=== PATIENT | male | born 1960 | race Caucasian/White ===

== ENCOUNTER 2018-12-03 19:55 | Emergency (ER) | payer BC ==
[2018-12-03 20:40] LABS: PLATELET COUNT 256 10^3/uL (150-400)
[2018-12-03] MEDS ORDERED: LORazepam 2 MG/ML INJ IVP ONE (23:30)
[2018-12-03] MEDS ORDERED: LORazepam 1 MG TAB ONE (23:31)
[2018-12-03] MEDS ORDERED: LORazepam 1 MG TAB PO ONE (23:34)
--- NOTE | 2018-12-04 00:06 | EDPHY ---
General - History Smoking Status: Never smoked Time Seen by Provider: 12/03/18 20:08 Narrative: CLINICAL IMPRESSION: Regan, paranoia ASSESSMENT/PLAN: 57-year-old male originally from [facility] to [place] as of May 2018, brought to the emergency department by a friend this evening for concerns of regan, paranoid behavior, delusions, nonsensical statements, and grave disability. Patient is renting house alone however has been unable to leave the house over the last week, unable to purchase food for himself, and sending group text messages at all hours of the night. Patient admits to a history of manic depression but is not regularly medicated for this. He reports taking Topamax for this. He also states he has had Klonopin in the past. According to his friend, patient has been admitted for his symptoms in the past however his friend has only been a part of his life for the last 2-3 years and met him on a video game on line site. Please see HPI for full details. Patient drinks regularly, is intoxicated with an alcohol level of 200, and also found to have cocaine and marijuana in his urine tox. Remainder of lab work is normal. Patient was placed on a medical incapacitation hold by myself. He will require formal TLC evaluation in the morning pending sobriety. He received Ativan for mild anxiety and is sleeping comfortably. His friend Neto, can be reached at [phone]. Patient's mother and children live in the [place] area, I do not have contact information for them. Case signed out to Dr. Gill at 2:00 a.m. Pending TLC evaluation. I suspect this patient will meet inpatient hospitalization requirements. DIFFERENTIAL DX: Differential includes but not limited to, acute/chronic psychosis, severe depression, suicidal or homicidal ideations, grave disability, failure to thrive , medication noncompliance, medication side effect, alcohol intoxication and illicit drug use, metabolic disturbance, electrolyte imbalance ED PROCEDURES: See lab and/or imaging results below ED COURSE: Labs returned, urine positive for cocaine and marijuana. Alcohol level 200. No other identified significant electrolyte imbalance, renal insufficiency or leukocytosis. Patient was placed on a medical detainer by myself. TLC provider aware however patient will be allowed to sober before formal evaluation to take place in the morning. Case signed out to Dr. Gill at 2: 00 a.m.. Patient received Ativan to calm anxiety and is sleeping comfortably at this time. CHIEF COMPLAINT: Regan HPI: This is a 57-year-old male with reported past medical history of manic depression, anxiety, presents to the emergency department with a friend tonight over concerns of paranoid statements, increasing regan, and delusional behavior over the last 2 weeks. Patient's friend states that he met the patient over 2 years ago through online video games. 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 He then approached his friend who is with him in the ED about coming to [place] to visit. Patient has been renting a home on [address] and according to the friend was doing well until 2 weeks ago. He then began displaying manic behaviors, has been unable to sleep, sending group text messages at all hours of the night, reporting that people are out to kill him, and making paranoid nonsensical statements both in writing and in-person. Patient tells me that he "is a genius and has save the world twice". According to his friend, he is a million air and was having difficulties with his trust and became upset that his mother change the amount of acids he would have access to degrees because of his manic behavior. His friend believed this is what set the patient off. The patient is not suicidal. He apparently gave his house keys to his friend and said "I want you to be able to get into my house because this regan may kill me and you can find my body that way. Patient has apparently been admitted to the hospital in the past in [place] for this. He states that he treats his manic depression with Topamax. He reports he needs clonazepam and tried to get this from his pharmacist friend in [place]. His friend in the ED today states that the patient drinks heavily most days. He also states the patient likes to "dabble" with drugs. Apparently, the patient is not able to leave his house over the last week and half. His friend has been ordering food for him. His friend is named Neto and can be reached at [phone]. PAST MEDICAL HISTORY: Manic depression See nurse/triage notes for additional history if applicable Pertinent Past Surgical History: None reported Family History: Family lives in [place] Social History: Relatively new to [place], abuses alcohol daily, according to his friend abuses illicit drugs REVIEW OF SYSTEMS: All other systems negative Constitutional: No fever, no chills, positive for appetite change. Eyes: No discharge, vision change ENT: No sore throat, congestion, ear pain. Cardiovascular: No chest pain, no palpitations. Respiratory: No cough, no shortness of breath. Gastrointestinal: No abdominal pain, no vomiting, diarrhea. Skin: No rashes, color change. Neurological: No headache, dizziness, weakness. PHYSICAL EXAM: General Appearance: Alert, oriented, pressured speech, making nonsensical statements, stating that he is "a genius that has saved the world twice" , smells of alcohol HEENT: Oropharynx clear is no erythema or exudates, no tonsillar hypertrophy or asymmetry. Dentition without abnormality. Eyes: PERRLA, no acute vision change, nystagmus, swelling, discharge, pain or photosensitivity. Conjunctiva pink, no pallor or injection Neck: Supple, nontender, no lymphadenopathy, no midline pain, FROM, no meningismus. Respiratory: There are no retractions, lungs are clear to auscultation. Cardiac: Regular rate and rhythm, no murmurs or gallops. Gastrointestinal: [Abdomen is soft, nontender Neurological: [ Alert and oriented x 3 Skin: Warm, dry, no rashes, no nodules on palpation. Musculoskeletal: Extremities are symmetrical, full range of motion, no tenderness, deformity, swelling, or erythema. Psychiatric: Patient is oriented X 3, displaying paranoid thoughts, pressured speech, appears to be in a manic episode, smells of alcohol MEDICAL DECISION MAKING: Patient was seen independently. Secondary supervising physician at time of evaluation was Dr. Mattson, Dr. Gill. Diagnosis: Regan, paranoia, delusional thoughts. New, requires workup Summary: See Assessment and Plan for summary of ED visit Clinical lab tests: ordered / reviewed. Independent visualization of images, tracing, or specimens: Not obtained. Decision to obtain medical records or history from someone other than the patient: Patient's friend Neto Review / Summarize previous medical records: None available Discussed patient with another provider: Dr. Mattson and Dr. Gill Patient Progress: Stable at time of signout. (Aj Hager) 6:00 a.m. Patient has been stable throughout my shift. Alcohol level was elevated at 200 though now he is clinically sober. He is medically clear and appropriate for evaluation by mental health. He is currently on a detainer. Case will be signed out to oncoming provider Dr. Gardner. (Aida Gill) Medical Decision Making: Care assumed at 6:45 a.m. The patient with bipolar disorder just moved to [place], presents manic and psychotic and alcohol intoxication. Plan for mental health evaluation when not intoxicated. 1246: Placed on a mental health hold in consultation with psychiatric managed care liaison for continued regan and grave disability. Signed out to Simba at 1500, psychiatric placement pending. (Paulino Gardner) 3:00 p.m., I took over care of this patient. This patient is on an M1 hold for bipolar disorder and alcohol intoxication. The patient has been seen and evaluated by Behavioral Health. Psychiatric placement is pending. 3:20 p.m., the patient has been accepted for transfer to [facility] psychiatric facility. Accepting physician is Dr. Madrigal. I have filled out the appropriate transfer paperwork. The patient's remaining emergency department course under my care has been uneventful. The patient was transferred in stable condition. (Miquel Harris) - Objective Vital Signs: Initial Vital Signs Temperature (C) 37.0 C 12/03/18 19:59 Heart Rate 90 12/03/18 19:59 Respiratory Rate 18 12/03/18 19:59 Blood Pressure 162/88 H 12/03/18 19:59 O2 Sat (%) 94 12/03/18 19:59 O2 Delivery Mode Room Air Allergies/Adverse Reactions: No Known Allergies Allergy (Unverified 12/03/18 20:02) Home Medications: Medication Instructions Recorded CLONAZEPAM 12/03/18 Pantoprazole Sodium 40 mg PO 12/03/18 Topiramate [Topamax] 25 mg PO 12/03/18 Laboratory Results: Laboratory Results 12/03/18 20:22 12/03/18 20:22 Medications Given: Discontinued Medications Loperamide HCl ( Imodium) 4 mg PO EDNOW ONE Stop: 12/04/18 09:18 Last Admin: 12/04/18 09:20 Dose: 4 mg Lorazepam (Ativan Injection) 1 mg IVP EDNOW ONE Stop: 12/03/18 23:31 Last Admin: 12/03/18 23:34 Dose: Not Given Lorazepam (Ativan) 1 mg PO EDNOW ONE Stop: 12/03/18 23:35 Last Admin: 12/03/18 23:35 Dose: 1 mg Departure - Departure Disposition: Other Psych, Not [place] Clinical Impression: Alcohol intoxication Qualifiers: Complication of substance-induced condition: uncomplicated Qualified Code(s): F10.920 - Alcohol use, unspecified with intoxication, uncomplicated Bipolar disorder Qualifiers: Active/Remission status: currently active Current bipolar episode type: manic Current episode severity: moderate Qualified Code(s): F31.12 - Bipolar disorder , current episode manic without psychotic features, moderate Referrals: NONE *PRIMARY CARE P,. [Primary Care Provider] - As per Instructions
[2018-12-04] MEDS ORDERED: OXYMETAZOLINE 30 ML NASAL SPRAY ONE (00:22)
[2018-12-04] MEDS ORDERED: LOPERAMIDE HCL 2 MG CAP PO ONE (09:17)
--- NOTE | 2018-12-04 13:02 | ASMTLCPROG ---
Notes Note: Notes: Met with this pt and read and reviewed Patient Rights. Pt expressed understanding and signed the document. Date Signed: 12/04/2018 01:01 PM Electronically Signed By:Neetu Nelson
--- NOTE | 2018-12-04 13:32 | ASMTTLCEVL ---
TLC Evaluation - Basic Information Evaluation Start Date and 12/04/2018 12:30 PM Time Hospital Status Answers: M1 Hold 72-hr M1 Hold Start Date 12/04/2018 11:45 AM and Time Patient statement Notes: I am here to get medication." Narrative Notes: This 57 y/o , male was brought to the ED by a friend with concerns of manic symptoms including paranoid behavior, delusions, nonsensical statements and grave disability. Pt had an ETOH level of 2.00 and was positive for cocaine and marijuana, He is now sober and ready for psychiatric evaluation. Pt is pleasant, cooperative, oriented and quite pressured. He denies suicidal, parasuicidal, homicidal ideation, urges or behaviors. He knows he is manic but has been unable to obtain meds and has been drinking and vaping marijuana to help him relax. 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 His friend reported to the ED MD that pt has been unable to leave his apartment to get food, ending group texts at all hours. Pt reports that he is prescribed topomax and klonopin the past. Is currently on no psych medications. He has been drinking daily. This assembly instructions writer has left a message for his friend to call me. Pt does not want contact with his mother, ex- or sons, none of whom live locally.. Diagnosis History Notes: Pt reports that he has been diagnosed with manic depressive disorder. First diagnosed in 1999 when under stress for a complicated divorce. Prior suicide attempts Notes: Pt denies Prior hospitalizations Notes: Pt denies Treatment Responses Notes: Pt reports taht topomax has been helpful. History of violence Notes: None reported Medications (name, dosage, route, freq uency) Notes: Has been prescribed topomax and klonopin - but is currently on no medication. Allergies/Reaction Notes: Pt denies Sleep Notes: Pt reports 6 hours of sleep per night Appetite Notes: Pt reports a decrease in appetite Medical/Surgical history Notes: Pt denies any surgical/medical problems - hrnia repair in childhood; recently has had gastric issues from [facility] Substance use history (frequency, intensity, his tory, duration) Notes: pt is currently drinking alcohol daily - he reports at least 2 drinks a day (likely to be minimizing). Pt denies use of cocaine in months, except for yesterday. Pt is a daily marijuana user. Family composition Notes: Pt lives alone in an apartment in [place]. He has 2 sons. age 20 - 25 who live in [place]. He is very angry with mother who he believes is stealing from him. Need for family Answers: No participation in patient's care Family psychiatric/substance abuse history Notes: Pt reports that Maternal Grandfather was an alcohlic; His Grandmother and Mother have emotional problems. Developmental history Notes: Pt grew up in [place] with both parents. He was an only child and reports that he was very, very smart an bullied throughout his school years for this. He denies any history of concussion, TBI or LOC. Denies any abuse but reports that parents were verbally abusive to each other. Abuse concerns Answers: None Marital status/children Notes: Pt is - 2 grown sons - age 20 and 25. Living situation Notes: Pt lives alone in [place]. Sexual history/orientation Notes: Pt is heterosexual - not currently in a relationship Peer support/family strengths Notes: Pt has a couple of friends locally - has friends back in [place]. 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 Legal Notes: He reports that an ex-girlfriend had him arrested for domestic violence last year. Charges were dismissed. Worship/Spiritual Notes: Pt denies any spiritual beliefs that would interfere with treatment Leisure Notes: Pt enjoys skiing and video games. Collateral Notes: Left message for friend, Neto Weinstein [phone] to call this assembly instructions writer. Patient's strengths Answers: Intelligent (Please select at least TWO strengths): Willingness Date Signed: 12/04/2018 01:31 PM Electronically Signed By:Neetu Nelson
--- NOTE | 2018-12-04 13:52 | ASMTLCPROG ---
Notes Note: Notes: This is a continuation of the [facility] Psychiatric Evaluation - Pt's appearance was appropriate; Eye Contact - Direct; Mood - Elevated; Affect - Appropriate; Behavior - Cooperative; Speech - Pressured; hyperverbal; Circumstantial; Thought Processes - Organized Insight - poor; judgment - poor; Manic symptoms - pressured speech. Pt denies auditory/visual hallucinations and delusional thinking - though continues mentioning how very smart he is. Suicidal risk factors - father committed suicide 10 yrs ago. Clayton I - 296.42 (F31.12) Bipolar I Disorder, most recent episode, Manic Suicidal risk - Pt denies S/I Father committed suiicide 10 yrs ago. Date Signed: 12/04/2018 01:51 PM Electronically Signed By:Neetu Nelson
--- NOTE | 2018-12-04 15:10 | ASMTTCLDSP ---
TLC Discharge Disposition Disposition: Answers: Transfer Disposition Notes: Notes: Dr Paulino Gardner placed this pt on an M-1 Hold as pt appeared to be gravely disabled. He appears to meet the 27-65 criteria requiring psychiatric in-pt treatment as he appears to be gravely disabled. Type of Hold: Answers: M1/72-hour Hold Hold initiated by: Answers: ED Physician For Transfers, Accepting [facility] Facility: For Transfers, Accepting Linh Contreras MD Psychiatrist: For Transfers, Reason No Male beds on 3N Patient is Being Transferred: Date Signed: 12/04/2018 03:10 PM Electronically Signed By:Neetu Nelson
[2018-12-04 15:43] VITALS: BP 154/91
== END 2018-12-04 16:55 ==
DX: F31.12 Bipolar disorder, current episode manic without psychotic features, moderate (principal); F10.920 Alcohol use, unspecified with intoxication, uncomplicated; Y90.7 Blood alcohol level of 200-239 mg/100 ml
CPT/HCPCS: 80305; G0480